=== PATIENT | female | born 1995 | race Caucasian/White ===

== ENCOUNTER 2018-05-20 20:56 | Inpatient (IN) | payer OTHER, MEDICAID ==
[2018-05-20] MEDS ORDERED: Penicillin G Potassium IV* 5,000,000 UNITS in NS 0.9% 100 ML* 100 ML IVPB ONE (21:15)
--- NOTE | 2018-05-20 21:22 | HP ---
General Information - Reason for Visit Term in labor - General Information Maternal Age: 21 Grav: 1 Para: 0 SAB: 0 IEA: 0 Estimated Due Date: 08/18/16 Determined By: LMP Gestational Age in Weeks/Days: 40-0/7 weeks Maternal Blood Type and Rh: A Positive - Results this Serology/RPR Result: Non-Reactive Rubella Result: Immune HBsAg Result: Negative HIV Result: Negative GBS Culture Result: Negative Past Medical History Delivery History: Hx Uncomplicated Vaginal Delivery Delivery History Comment: 07/2016 at [facility] [place] ISAIAH Pertinent Past Medical History: See Records Past Medical History Comment: H/O Depression/anxiety Pertinent Past Surgical History: See Records Past Surgical History Comment: Tonsillectomy Sinus Surgery Pertinent Family History: Non-Contributory - Antepartal Records Antepartal Records: Reviewed, Complicated by: - Elevated BMI 36 on entry to care Review of Systems Constitutional: Uncomfortable - with UCs CV Complaint: No Respiratory: Shortness of Breath: No Gastrointestinal: No Nausea/Vomiting, Normal Bowel Movement Genitourinary: No Dysuria, No Bleeding, No Leaking Fluid Musculoskeletal: No Complaint, No Epigastric Pain Neurological: No Headache, No Visual Changes Movement: Normal Exam Allergies/Adverse Reactions: Allergies MS Bee Venom [Bee Venom] Allergy (Severe, Verified 08/09/16 03:27) Anaphylatic Shock MS Sulfamethoxazole w/Trimethoprim [From Bactrim] Allergy (Mild, Verified 03:27) Hives BP 123/74 HR 85 - Measurements Height: 5 ft 3.5 in Weight: 220 lb Body Mass Index (BMI): 38.3 Pre- Weight: 185 lb - Exam Breast: Breast Exam Deferred CVA: No CVA Tenderness Extremities: No Edema Heart: Normal Rhythm/Heart Sounds HEENT: No Significant Findings Lungs: Clear Bilaterally Rectal: Rectal Exam Deferred Reflexes: DTR 2+ Thyroid: No Thyromegaly - Abdominal Exam Abdomen Exam: Non-Tender, Fundal Height Consistent with Dates - Ultrasound/Biophysical Profile Ultrasound Status: Not Done Targeted Exam Findings See L&D Outpatient Visit Provider Note for Findings: N/A Cervical Exam: 7cm Effacement: 100% Station: -1 Presenting Part: Vertex Membrane Status: Intact Sterile Speculum Exam: Not done Bleeding/Discharge: None EFM Findings - External Monitor Findings Baseline Heart Rate: 125 External Monitor Findings: Accelerations Present, No Pattern of Variable or Late Decelerations, Variability Moderate, Baseline Stable External Monitor Findings Comment: No evidence of metabolic acidemia Contractions: Irregular, Strong, 45-90 Seconds Contraction Frequency: q 3 min Assessment/Plan - Assessment IUP at 40 weeks in active labor No evidence of metabolic acidemia GBS + - Obstetrical Risk Factors Obstetrical Risk Factors: GBS Positive - Plan Plan: Observe, Antibiotic Prophylaxis - for GBS + status Plan Comment: Admit to L&D. Begin GBS prophylaxis. Anticipate - Date/Time of Admission Date of Admission: 05/20/18 Time of Admission: 21:26
[2018-05-20] MEDS ORDERED: fentaNYL* 50 MCG/ML 2 ML VIAL (100 MCG VIAL) ONE (21:40)
[2018-05-20] MEDS ORDERED: fentaNYL* 50 MCG/ML 2 ML VIAL (100 MCG VIAL) IV SLOW PU ONE (21:42)
[2018-05-20 21:55] LABS: Hematocrit 32 % (35-47); Hemoglobin 10.4 g/dl (12.0-16.0); Mean Corpuscular HGB Conc 33 g/dl (31-36); Mean Corpuscular Hemoglobin 23 pg (27-31); Mean Corpuscular Volume 71 fL (80-97); Mean Platelet Volume 8.2 um3 (7.4-10.4); Platelet Count 268 10^3/ul (150-450); Red Blood Count 4.47 10^6/ul (4.00-5.40); Red Cell Distribution Width 15 % (10.5-15)
[2018-05-20 22:26] LABS: ABS Basophils 0.1 10^3/ul (0-0.2); ABS Eosinophils 0 10^3/ul (0-0.6); ABS Lymphocytes 1.9 10^3/ul (1.0-4.8); ABS Monocytes 0.7 10^3/ul (0-0.8); ABS Neutrophils 10.2 10^3/ul (1.5-7.7); ABS Nucleated RBC 0 10^3/ul; Eosinophil % 0.1 % (0-6); Lymphocyte % 14.9 % (25-47); Nucleated Red Blood Cells % 0
[2018-05-20] MEDS ORDERED: Oxytocin in LR* 0 UNITS/0 ML BAG IVPB ONE (22:54)
[2018-05-20] MEDS ORDERED: Witch Hazel PAD* JAR TOPICAL PRN (23:06)
[2018-05-20] MEDS ORDERED: Dibucaine 1% 28.35 GM TUBE PR PRN (23:06)
[2018-05-20] MEDS ORDERED: Glycerin ADULT SUPP PR PRN (23:06)
--- NOTE | 2018-05-20 23:15 | PROCNOTE ---
[facility] OB: Delivery Note - Delivery A Date of : 05/20/18 Time of : 22:51 Sex: Female Score 1 Minute: 9 Score 5 Minutes: 9 Gestational Age in Weeks and Days at Delivery: 40 Weeks and 0 Days Delivery Method: Spontaneous Vaginal Labor: Spontaneous Did Patient attempt ?: N/A, No Previous Amniotic Fluid: Meconium Estimated Blood Loss: 250 Anesthesia/Analgesia: IM/IV - IV Fentanyl x 1 dose - Nursery Level of Nursery: Regular/Bedside - Perineum Perineal Injury: None/Intact Perineal Repair: None - Events Delivery Events of Note Comment: Only one dose of penicillin given 1 hour and 21 min prior to delivery - Additional Delivery Notes Additional Delivery Notes: Pt admitted in labor with expected progression to complete. Amniotomy at 9cm to meconium stained fluid resulted in spontaneous pushing. Length of labor 1 hour, 40 min. Pushed x 2 min. liveborn female. Slow, controlled delivery of head. OA to JOYCE. Shoulders followed easily. [place] vigorous with spontaneous cry. HR> 110bpm. Delivered to maternal abdomen. Cord clamped x 2 and cut by pt's mother after pulsations ceased. Spontaneous delivery intact placenta. Membranes complete. Fundus firm to massage and remained firm. Minimal bleeding noted. Perineum intact. No repair needed as above. EBL 250mL. At time of note mother and in stable condition. Breast feeding initiated
[2018-05-21] MEDS: Acetaminophen TAB* 325 MG PO PRN (01:07)
[2018-05-21] MEDS ORDERED: Penicillin G Potassium IV* 2,500,000 UNITS in NS 0.9% 100 ML* 100 ML IVPB SCH (02:00)
[2018-05-21 06:20] LABS: ABS Basophils 0.2 10^3/ul (0-0.2); ABS Eosinophils 0 10^3/ul (0-0.6); ABS Lymphocytes 1.9 10^3/ul (1.0-4.8); ABS Monocytes 0.7 10^3/ul (0-0.8); ABS Neutrophils 13.4 10^3/ul (1.5-7.7); ABS Nucleated RBC 0 10^3/ul; Eosinophil % 0 % (0-6); Hematocrit 32 % (35-47); Hemoglobin 10.3 g/dl (12.0-16.0); Lymphocyte % 11.5 % (25-47); Mean Corpuscular HGB Conc 33 g/dl (31-36); Mean Corpuscular Hemoglobin 23 pg (27-31); Mean Corpuscular Volume 71 fL (80-97); Mean Platelet Volume 7.9 um3 (7.4-10.4); Nucleated Red Blood Cells % 0; Platelet Count 262 10^3/ul (150-450); Red Blood Count 4.49 10^6/ul (4.00-5.40); Red Cell Distribution Width 15 % (10.5-15); White Blood Count 16.1 10^3/ul (3.5-10.8)
[2018-05-21] MEDS: Docusate CAP* 100 MG PO SCH ×2 (08:46→14:37)
[2018-05-21] MEDS: Ibuprofen TAB* 600 MG PO PRN ×2 (08:46→18:17)
[2018-05-21] MEDS ORDERED: Ferrous Gluconate TAB* 324 MG TAB PO SCH (09:00)
[2018-05-21] MEDS: Simethicone TAB* 80 MG TAB.CHEW PO SCH ×2 (11:46→14:38)
[2018-05-22] MEDS: Docusate CAP* 100 MG PO SCH ×3 (08:55→20:08)
[2018-05-22] MEDS: Ibuprofen TAB* 600 MG PO PRN ×2 (08:55→18:17)
[2018-05-22 20:07] VITALS: BP 121/65
[2018-05-22] MEDS: Acetaminophen TAB* 325 MG PO PRN (20:08)
== END 2018-05-22 20:20 | disposition home or self-care (01) | DRG 775 ==
LOC: MCHOBOUT 20:56 → MCHOB 21:22
PROVIDERS: ADMIT Midwife; ATTEND Midwife
PROC: 10E0XZZ Delivery of Products of Conception, External Approach (ICD-10-PCS; principal; 2018-05-20)
PROC: 10907ZC Drainage of Amniotic Fluid, Therapeutic from Products of Conception, Via Natural or Artificial Opening (ICD-10-PCS; 2018-05-20)
DX: O99.824 Streptococcus B carrier state complicating childbirth (principal); O99.344 Other mental disorders complicating childbirth; F41.8 Other specified anxiety disorders; O77.0 Labor and delivery complicated by meconium in amniotic fluid; Z3A.40 40 weeks gestation of pregnancy; Z37.0 Single live birth
CPT/HCPCS: 36415; 85025; 86850; 86900; 86901; A9270-GY; J2540; J3010